=== PATIENT | female | born 1970 | race Caucasian/White ===

== ENCOUNTER 2018-01-11 12:46 | Outpatient (CLI) | payer OTHER ==
--- NOTE | 2018-01-20 14:49 | MMO ---
BILATERAL DIGITAL SCREENING MAMMOGRAMS: History: 47-year-old female presents for digital screening mammography. Comparison: 04-22-11 FINDINGS: This study is interpreted with the assistance of computer aided detection. The breasts are heterogeneously dense which can obscure small masses. No direct or indirect evidence of malignancy. Appearance is stable. IMPRESSION: BIRADS category 1 - negative. Continued routine screening. POS: AMISHA
== END 2018-01-11 12:47 | disposition home or self-care (01) ==
LOC: SCSMAMMO 12:46
PROVIDERS: ATTEND Family Medicine
DX: Z12.31 Encounter for screening mammogram for malignant neoplasm of breast (principal)
CPT/HCPCS: 77067

== ENCOUNTER 2020-04-18 11:29 | Outpatient (CLI) | payer OTHER ==
--- NOTE | 2020-04-18 14:08 | MMO ---
Bilateral MAMMO Bilat Screen [facility]. CLINICAL HISTORY: Patient is 49 years old and is seen for screening. The patient has no family history of breast cancer. The patient has no personal history of cancer. VIEWS: The views performed were: bilateral craniocaudal with tomosynthesis and bilateral mediolateral oblique with tomosynthesis. FILMS COMPARED: The present examination has been compared to prior imaging studies performed at [facility] on 01/11/2018, and at [facility] on 04/22/2011. This study has been interpreted with the assistance of computer-aided detection. MAMMOGRAM FINDINGS: There are scattered fibroglandular densities. There are no suspicious masses, suspicious calcifications, or new areas of architectural distortion. IMPRESSION: THERE IS NO MAMMOGRAPHIC EVIDENCE OF MALIGNANCY. A ROUTINE FOLLOW-UP MAMMOGRAM IN 1 YEAR IS RECOMMENDED. THE RESULTS OF THIS EXAM WERE SENT TO THE PATIENT. ACR BI-RADS Category 1 - Negative MAMMOGRAPHY NOTE: 1. A negative mammogram report should not delay a biopsy if a dominant of clinically suspicious mass is present. 2. Approximately 10% to 15% of breast cancers are not detected by mammography. 3. Adenosis and dense breasts may obscure an underlying neoplasm. Reported by: WILLY TEMPLE MD Electonically Signed: [id number]
== END 2020-04-18 11:30 | disposition home or self-care (01) ==
LOC: BICMAMMO 11:29
PROVIDERS: ATTEND Family Medicine
DX: Z12.31 Encounter for screening mammogram for malignant neoplasm of breast (principal)
CPT/HCPCS: 77063; 77067

== ENCOUNTER 2020-04-18 12:06 | Outpatient (CLI) | payer OTHER | END 2020-04-18 12:07 | disposition home or self-care (01) | LOC: ULT 12:06 | PROVIDERS: ATTEND Family Medicine | DX: R01.1 Cardiac murmur, unspecified (principal); I34.0 Nonrheumatic mitral (valve) insufficiency; R00.1 Bradycardia, unspecified | CPT/HCPCS: 93306 ==

== ENCOUNTER 2022-08-12 12:41 | Outpatient (CLI) | payer OTHER | END 2022-08-12 12:42 | disposition home or self-care (01) | LOC: SCSRAD 12:41 | DX: M16.12 Unilateral primary osteoarthritis, left hip (principal) | CPT/HCPCS: 72100; 72170 ==

== ENCOUNTER 2023-01-02 10:30 | Outpatient (CLI) | payer OTHER | END 2023-01-02 10:31 | disposition home or self-care (01) | LOC: SCSRAD 10:30 | DX: M25.569 Pain in unspecified knee (principal) ==